=== PATIENT | female | born 1965 ===

== ENCOUNTER 2018-06-04 18:51 | Emergency (ER) | payer SELFPAY ==
[2018-06-04 20:41] VITALS: TEMP 98.4; O2SAT 99
[2018-06-04] MEDS ORDERED: DiphenhydrAMINE 50 mg/ml Inj IV STA (21:02)
--- NOTE | 2018-06-04 21:05 | ED PDOC ---
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 Patient has tried multiple [id number] creams without improvement. Denies fever,facial swelling, difficulty speaking/swallowing, chest pain, shortness of breath, palpitations, vomiting/diarrhea, or known allergen Past Medical History Reviewed: Historical Data, Nursing Documentation, Vital Signs Vital Signs: Last Vital Signs Temp 98.4 F 06/04/18 20:38 Pulse 101 H 06/04/18 20:38 Resp 16 06/04/18 20:38 BP 164/107 H 06/04/18 20:38 Pulse Ox 99 06/04/18 20:38 - Medical History PMH: No Chronic Diseases - Surgical History Surgical History: Appendectomy - Family History Family History: States: No Known Family Hx - Home Medications Home Medications: Ambulatory Orders Medication Instructions Recorded Loperamide [Imodium] 2 mg PO BID PRN #10 cap 08/18/14 Ondansetron [Zofran Odt] 4 mg PO TID PRN #10 odt 08/18/14 Cetirizine HCl [Zyrtec] 10 mg PO DAILY #5 capsule 06/04/18 Famotidine [Pepcid] 20 mg PO BID #8 tab 06/04/18 Prednisone 50 mg PO DAILY #4 tablet 06/04/18 - Allergies Allergies/Adverse Reactions: Allergies Allergy/AdvReac Type Severity Reaction Status Date / Time Penicillins Allergy RASH Verified 06/04/18 20:38 Review of Systems ROS Statement: Except As Marked, All Systems Reviewed And Found Negative Skin: Positive for: Rash Physical Exam - Reviewed Nursing Documentation Reviewed: Yes Vital Signs Reviewed: Yes - Physical Exam Appears: Positive for: Well, Non-toxic, No Acute Distress Head Exam: Positive for: ATRAUMATIC, NORMAL INSPECTION, NORMOCEPHALIC Skin: Positive for: Rash (erythematous plaques with silver appearance noted to anterior neck and bilateral upper extremities; no vesicles, lesions, drainage, temp change noted) Eye Exam: Positive for: Normal appearance ENT: Positive for: Normal ENT Inspection Cardiovascular/Chest: Positive for: Regular Rate, Rhythm Respiratory: Positive for: Normal Breath Sounds Gastrointestinal/Abdominal: Positive for: Normal Exam Back: Positive for: Normal Inspection Extremity: Positive for: Normal ROM Neurologic/Psych: Positive for: Alert, Oriented (x3) - ECG O2 Sat by Pulse Oximetry: 99 - Progress ED Course And Treament: -IV solumedrol -IV benadryl -IV pepcid On re-eval, rash improved. Patient reports some improvement of itching Patient educated on findings, discharged with rx Prednisone, Pepcid, Zyrtec Advised follow up PMD/Dermatology Return precautions given Disposition - Clinical Impression Clinical Impression: Rash and nonspecific skin eruption - Patient ED Disposition Is Patient to be Admitted: No Counseled Patient/Family Regarding: Diagnosis, Need For Followup, Rx Given - Disposition Referrals: [facility] [Outside] Disposition: Routine/Home Disposition Time: 23:08 Condition: IMPROVED Prescriptions: Cetirizine HCl [Zyrtec] 10 mg PO DAILY #5 capsule Famotidine [Pepcid] 20 mg PO BID #8 tab Prednisone 50 mg PO DAILY #4 tablet Instructions: Dermatitis Print Language: MAURITIAN
[2018-06-04] MEDS ORDERED: DiphenhydrAMINE 50 mg/ml Inj ONE (21:30)
[2018-06-04 23:18] VITALS: BP 145/94; PULSE 98; RESP 17
== END 2018-06-04 23:23 | disposition home or self-care (01) ==
LOC: H.ER 18:51
DX: R21 Rash and other nonspecific skin eruption (principal)
CPT/HCPCS: 96374; 96375; 99282; J1200; J2930